=== PATIENT | female | born 1960 | race Caucasian/White ===

== ENCOUNTER 2019-05-11 11:06 | Outpatient (CLI) | payer OTHER ==
--- NOTE | 2019-05-18 09:04 | Mammography Report ---
Reason: SCREENING MAMMO Procedure Date: 05/11/2019 Accession Number: [id number] / [id number] Procedure: MGN - Screening Mammo Dig Bilat CPT Code: Final Report FULL RESULT: EXAM: Screening Mammo Dig Bilat DATE: 05/11/2019 11:40 AM CLINICAL HISTORY: Screening encounter. History of early menses. TECHNIQUE: (B) - Bilateral CC, laterally exaggerated CC, MLO views were obtained. COMPARISON: 09/29/2017. PARENCHYMAL PATTERN: (D) - The breast(s) demonstrate(s) heterogeneously dense fibroglandular parenchyma. FINDINGS: There are coarse typically benign calcifications. There are no suspicious masses, calcifications, or areas of distortion. IMPRESSION: Benign findings. BI-RADS category 2. RECOMMENDATION: (ANNUAL) - Recommend routine annual screening mammography. BI-RADS CATEGORY: (2) - Benign Findings. STANDARD QUALIFYING STATEMENTS: 1. This examination was not reviewed with the aid of Computer-Aided Detection (CAD). 2. A negative or benign imaging report should not preclude biopsy if clinically suspicious findings are present. 3. Dense breasts may obscure an underlying neoplasm. 4. This examination was reviewed without the aid of 3D breast imaging (tomosynthesis).
== END 2019-05-11 11:07 | disposition home or self-care (01) ==
LOC: DI.N 11:06
PROVIDERS: ATTEND Family Medicine
DX: Z12.31 Encounter for screening mammogram for malignant neoplasm of breast (principal)
CPT/HCPCS: 77067

== ENCOUNTER 2022-01-18 08:00 | Outpatient (CLI) | payer OTHER | END 2022-01-18 23:59 | disposition home or self-care (01) | LOC: LAB.N 08:00 | PROVIDERS: ATTEND Physician Assistant Medical | DX: N30.00 Acute cystitis without hematuria (principal) | CPT/HCPCS: 87077; 87086; 87181 ==

== ENCOUNTER 2022-12-05 08:00 | Outpatient (CLI) | payer OTHER | END 2022-12-05 23:59 | disposition home or self-care (01) | LOC: LAB.N 08:00 | PROVIDERS: ATTEND Registered Nurse | DX: L03.90 Cellulitis, unspecified (principal); R22.42 Localized swelling, mass and lump, left lower limb; M79.662 Pain in left lower leg | CPT/HCPCS: 87070; 87077; 87181; 87205 ==

== ENCOUNTER 2022-12-05 10:45 | Outpatient (CLI) | payer OTHER ==
--- NOTE | 2022-12-05 12:32 | XRAY Report ---
PROCEDURE: Tib/Fib LT INDICATIONS: CELLULITIS OF LEFT LOWER LEG TECHNIQUE: 2 views of the tibia and fibula were acquired. COMPARISON: None. FINDINGS: Bones: No fractures or dislocations. No suspicious bony lesions. Soft tissues: No suspicious soft tissue calcifications or masses. IMPRESSION: Normal left tib-fib radiographs. No lytic or blastic lesion Reviewed by: Theron Fierro MD on 12/05/2022 11:31 AM JHOAN Approved by: Theron Fierro MD on 12/05/2022 11:31 AM [email or web address] Station ID: [id number]
== END 2022-12-05 11:00 | disposition home or self-care (01) ==
LOC: DI.N 10:45
PROVIDERS: ATTEND Registered Nurse
DX: L03.90 Cellulitis, unspecified (principal); R22.42 Localized swelling, mass and lump, left lower limb; M79.662 Pain in left lower leg
CPT/HCPCS: 87070; 87077; 87181; 87205

== ENCOUNTER 2023-12-02 09:58 | Emergency (ER) | payer BC, OTHER ==
--- NOTE | 2023-12-02 11:06 | XRAY Report ---
PROCEDURE: Chest 2V INDICATIONS: Cough TECHNIQUE: 2 views of the chest were acquired. COMPARISON: None. FINDINGS: Surgical changes and devices: None. Lungs and pleura: No pleural effusions or pneumothorax. Lungs are clear. Mediastinum: Mediastinal contours appear normal. Heart size is normal. Bones and chest wall: Rounded increased densities are present overlying the left humeral head. No pr iors. IMPRESSION: No acute cardiopulmonary process. Rounded densities are present overlying the left humeral head. Recommend dedicated shoulder series to determine if these are overlying the patient, within the soft tissues or within the bone. Reviewed by: Kate Muñoz MD on 12/02/2023 11:04 AM PDT Approved by: Kate Muñoz MD on 12/02/2023 11:04 AM PDT Station ID: [id number]
--- NOTE | 2023-12-02 11:22 | ED Physician Documentation ---
PD HPI URI - Stated complaint Stated Complaint: COUGHING BLOOD - Chief complaint Chief Complaint: Resp - Additional information Additional information: 63-year-old female with history of hypercholesterolemia and tobacco dependence presents emergency department for cough that has been lasting for about 12 to 14 days. Patient said this weekend she started to feel significantly better and then Friday she started to experience a cough again. She also reports that she recently quit smoking and quit smoking in the 80s and also experienced the similar symptoms to that period of time as well but just wanted make sure that she did not have pneumonia. Patient started to notice some pink-tinged sputum yesterday and was worried about a secondary lung infection. No recent international travel no recent fevers or chills no nausea or vomiting no shortness of breath or chest pain. PD PAST MEDICAL HISTORY - Past Medical History Past Medical History: Yes Cardiovascular: High cholesterol : Other Psych: Depression Other Past Medical History: arthritis - Past Surgical History Past Surgical History: Yes /[employer]: Tubal ligation, Hysterectomy - Present Medications Home Medications: Ambulatory Orders Medication Instructions Recorded Confirmed Atorvastatin [Lipitor] 20 mg ORAL DAILY 02/24/22 02/24/22 Dicyclomine [Bentyl] 10 mg PO QID PRN #30 cap 02/24/22 Fluoxetine HCl [Prozac] 20 mg PO DAILY 02/24/22 02/24/22 HYDROcod/ACETAM 5/325 [[place] 5/325] 1 - 2 ea PO Q6H PRN #14 tablet 02/24/22 Valacyclovir HCl [Valtrex] 500 mg ORAL DAILY 02/24/22 02/24/22 Albuterol Sulf [Ventolin Hfa 1 - 2 puffs INH Q4HR PRN #18 gm 12/02/23 Inhaler] Benzonatate [Tessalon] 100 mg PO TID #30 cap 12/02/23 - Allergies Allergies/Adverse Reactions: Allergies Allergy/AdvReac Type Severity Reaction Status Date / Time No Known Drug Allergies Allergy Verified 02/24/22 15:58 - Social History Does the pt smoke?: No Smoking Status: Former smoker Does the pt drink ETOH?: Yes ETOH Use: Wine Does the pt have substance abuse?: No - Immunizations Immunizations: TDAP >10years/unknown PD ED PE NORMAL - Vitals Vital signs reviewed: Yes - General General: No acute distress, Well developed/nourished - HEENT HEENT: PERRL, Moist mucous membranes - Neck Neck: No bony TTP, Thyroid normal - Cardiac Cardiac: RRR, No murmur - Respiratory Respiratory: No respiratory distress, Clear bilaterally - Abdomen Abdomen: Normal bowel sounds, Soft, Non tender, Non distended, No organomegaly - Extremities Extremities: No deformity, No edema, No calf tenderness / cord - Psych Psych: Normal mood Results - Vitals Vitals: Vital Signs - 24 hr 12/02/23 12/02/23 10:16 12:48 Temperature 36 C L Heart Rate 67 70 Respiratory 16 18 Rate Blood Pressure 134/85 H 98/69 O2 Saturation 99 97 Oxygen O2 Source Room air - Rads (name of study) Chest x-ray Relevant Findings:: Final report received, EMP independent interpretation of test, Other (No acute cardiopulmonary abnormalities or findings) PD Medical Decision Making - ED course ED course: 63-year-old female presents emergency department for concerns of persistent cough. Patient just recently quit smoking and is also not having symptoms of upper respiratory infection now for about the last week or so. Her main concern is pneumonia. Chest x-ray is complete for further evaluation no acute abnormalities were visualized on the chest x-ray concerning for pneumonia or cardiomegaly. She did have some left shoulder abnormalities today 100 pursued shoulder specific x-rays for further evaluation which revealed numerous glenohumeral joint ossified intra-articular bodies. Patient was given these results and she has an appointment with a new primary care provider coming up and she was told to follow-up with them about these findings. Believe that patient is experiencing bronchitis chest x-ray does not show any pneumonia. I also believe that patient is experiencing symptoms from quitting smoking. She is given a DuoNeb here in the emergency department does notice some alleviation of symptoms as well as Tessalon Perles. She was offered a respiratory swab but kindly declined and said that she does want to make sure that she does not have any pneumonia. She is told to follow-up with her primary care provider about today's ER visit return precautions given prescription of Tessalon Perles and albuterol inhaler sent to her preferred pharmacy all questions answered safe for discharge. Departure - Departure Disposition: 01 Home, Self Care Clinical Impression: Bronchitis Instructions: Bronchitis Acute Dc, ED Viral Syndrome Prescriptions: Albuterol Sulf [Ventolin Hfa Inhaler] 1 - 2 puffs INH Q4HR PRN #18 gm PRN Reason: Shortness Of Air/Wheezing Benzonatate [Tessalon] 100 mg PO TID #30 cap Comments: Thank you for trusting us with your care. We have completed a chest x-ray and I am not seeing any acute abnormalities or findings that would be indicative of pneumonia at this point in time. We have given you a Tessalon Perle here in the emergency department to help with your cough as well as 1 DuoNeb to help with your wheezing. Make sure that you are drinking plenty of fluids going home I have sent a prescription of albuterol inhaler and Tessalon Perles to your preferred pharmacy for you to take as you are recovering from this bronchitis. Please help with your primary care provider about today's ER visit. EXAM: [id number] XR/[id number] ([id number]) PROCEDURE: Shoulder 2+V LT INDICATIONS: left humeral head abnormalities TECHNIQUE: 3 views of the shoulder were acquired. COMPARISON: None. FINDINGS: Bones: No fractures or dislocations. No suspicious bony lesions. Visualized ribs appear intact. Soft tissues: Numerous, ossified intra-articular loose bodies. The visualized lungs are within normal limits. IMPRESSION: No acute bony abnormality. Numerous glenohumeral joint ossified intra-articular bodies. Forms: PCP List Discharge Date/Time: 12/02/23 12:48
[2023-12-02] MEDS: BENZONATATE 100 MG CAPSULE PO STA (11:38)
--- NOTE | 2023-12-02 12:25 | XRAY Report ---
PROCEDURE: Shoulder 2+V LT INDICATIONS: left humeral head abnormalities TECHNIQUE: 3 views of the shoulder were acquired. COMPARISON: None. FINDINGS: Bones: No fractures or dislocations. No suspicious bony lesions. Visualized ribs appear intact. Soft tissues: Numerous, ossified intra-articular loose bodies. The visualized lungs are within chas l limits. IMPRESSION: No acute bony abnormality. Numerous glenohumeral joint ossified intra-articular bodies. Reviewed by: Melody Olvera MD, PhD on 12/02/2023 12:24 PM PDT Approved by: Melody Olvera MD, PhD on 12/02/2023 12:24 PM PDT Station ID: [id number]
[2023-12-02] MEDS: IPRATROPIUM/ALBUTEROL 3 ML NEB INH STA (12:37)
[2023-12-02 12:55] VITALS: BP 98/69; O2SAT 97
== END 2023-12-02 12:48 | disposition home or self-care (01) ==
LOC: ED 09:58
DX: J40 Bronchitis, not specified as acute or chronic (principal); Z87.891 Personal history of nicotine dependence; E78.00 Pure hypercholesterolemia, unspecified; Z79.899 Other long term (current) drug therapy
CPT/HCPCS: 71046; 73030; 99284; A9270